=== PATIENT | male | born 1950 | race African-American/Black ===

== ENCOUNTER 2018-08-30 10:30 | Emergency (ER) | payer OTHER ==
[2018-08-30] MEDS: ASPIRIN 325 MG TAB PO (11:32)
[2018-08-30] MEDS: SOD CHLORIDE 0.9% 1,000 ML IV (11:33)
[2018-08-30 12:16] LABS: ADD MAN DIFF? NO
[2018-08-30 12:29] LABS: BASOPHIL # 0.1 10^3/ul (0.0-0.1); EOSINOPHILS # 0.2 10^3/ul (0.0-0.5); EOSINOPHILS % 4.2 % (0.0-7.0); HEMATOCRIT 41.4 % (42.0-52.0); HEMOGLOBIN 13.4 g/dl (14.0-18.0); LYMPHOCYTES # 1.8 10^3/ul (0.8-2.9); LYMPHOCYTES % 36.3 % (15.0-51.0); MEAN CORPUSCULAR HGB CONC 32.4 g/dl (32.0-37.0); MEAN CORPUSCULAR VOLUME 92.8 fl (82.0-101.0); MEAN PLATELET VOLUME 11.5 fl (7.4-10.4); MONOCYTE # 0.5 10^3/ul (0.3-0.9); NEUTROPHIL # 2.5 10^3/ul (1.6-7.5); NEUTROPHILS % 49.3 % (39.0-77.0); PLATELET COUNT 193 10^3/UL (140-415); RED BLOOD COUNT 4.46 10^6/ul (4.70-6.10); RED CELL DISTRIBUTION WIDTH 11.9 % (11.5-14.5)
[2018-08-30 12:37] LABS: ALANINE AMINOTRANSFERASE 29 IU/L (13-69); ALBUMIN 4.4 g/dl (3.3-4.9); ALBUMIN/GLOBULIN RATIO 1.33; ALKALINE PHOSPHATASE 78 IU/L (42-121); ANION GAP 9 (5-13); ASPARTATE AMINO TRANSFERASE 27 IU/L (15-46); BILIRUBIN,INDIRECT 0.6 mg/dl (0-1.1); BILIRUBIN,TOTAL 0.6 mg/dl (0.2-1.3); BLOOD UREA NITROGEN 17 mg/dl (7-20); CALCIUM 9.9 mg/dl (8.4-10.2); CARBON DIOXIDE 33 mmol/L (21-31); CHLORIDE 103 mmol/L (97-110); CHOL/HDL RATIO 4.5 RATIO; CHOLESTEROL 128 mg/dl (100-200); CREATININE 0.94 mg/dl (0.61-1.24); Estimated GFR > 60 mL/min (>60); GLUCOSE 91 mg/dl (70-220); HDL CHOLESTEROL 28 mg/dl (30-78); LDL CHOLESTEROL,CALCULATED 84 mg/dl; SODIUM 145 mmol/L (135-144); TOTAL PROTEIN 7.7 g/dl (6.1-8.1); TRIGLYCERIDES 78 mg/dl (0-149)
[2018-08-30 12:48] LABS: TROPONIN-I 0.017 ng/ml (0.000-0.120)
[2018-08-30 12:49] LABS: INR 1.05; PROTIME 13.8 Sec (11.9-14.9); PT RATIO 1.1
[2018-08-30 12:50] LABS: PARTIAL THROMBOPLASTIN TIME 35.4 Sec (23.0-35.0)
== END 2018-08-30 18:10 | disposition home or self-care (01) ==
LOC: E/R 10:30
DX: I63.9 Cerebral infarction, unspecified (principal); I10 Essential (primary) hypertension; I50.9 Heart failure, unspecified; I25.2 Old myocardial infarction; R40.2142 Coma scale, eyes open, spontaneous, at arrival to emergency department; R40.2252 Coma scale, best verbal response, oriented, at arrival to emergency department; R40.2362 Coma scale, best motor response, obeys commands, at arrival to emergency department; Z98.61 Coronary angioplasty status; Z79.82 Long term (current) use of aspirin; Z87.891 Personal history of nicotine dependence
CPT/HCPCS: 36415; 70450; 71045; 80053; 80061; 84484; 85025; 85610; 85730; 93005; 99285-25

== ENCOUNTER 2018-12-19 09:12 | Day surgery (SDC) | payer OTHER ==
[2018-12-19] MEDS ORDERED: PROPOFOL 40 ML ×2 (11:07→11:35)
[2018-12-19] MEDS ORDERED: LIDOCAINE 100 MG SYRINGE (11:07)
[2018-12-19] MEDS ORDERED: VASOPRESSIN 20 UNITS INJ (11:17)
[2018-12-19] MEDS ORDERED: ETOMIDATE 20 MG INJ ×2 (11:17→11:36)
== END 2018-12-19 13:54 | disposition home or self-care (01) ==
LOC: GIL 09:12
DX: Z12.11 Encounter for screening for malignant neoplasm of colon (principal); K64.4 Residual hemorrhoidal skin tags; K57.30 Diverticulosis of large intestine without perforation or abscess without bleeding; I10 Essential (primary) hypertension; I25.10 Atherosclerotic heart disease of native coronary artery without angina pectoris; E03.9 Hypothyroidism, unspecified; Z86.73 Personal history of transient ischemic attack (TIA), and cerebral infarction without residual deficits; Z79.82 Long term (current) use of aspirin
CPT/HCPCS: 45378